=== PATIENT | male | born 2000 | race Caucasian/White ===

== ENCOUNTER 2021-05-05 16:49 | Emergency (ER) | payer MEDICAID ==
--- NOTE | 2021-05-05 18:31 | EDM.PDOC ---
ED HPI GENERAL MEDICAL PROBLEM - General Chief Complaint: Head Injury Stated Complaint: FACE INJURY Time Seen by Provider: 05/05/21 18:15 Source of Information: Reports: Patient History Limitations: Reports: No Limitations - History of Present Illness INITIAL COMMENTS - FREE TEXT/NARRATIVE: 21 year-old male presents to the ED due to a work-related injury that occurred approximately 1630 hrs. today. He essentially had the end of a 3 inch pipe that was under mild pressure his coworker estimates 5 to 10 pounds per square inch. The hoses attached to a single needle operator which is meant metal and it reared up and struck him in the left side of his face. He states for period of time he thought he was going to pass out and he had muffled hearing. Since that time he has no feeling pretty well back to normal. His nose was bleeding for short period of time from the left side. He feels pressure and contusion to the inner mucosa of his left upper facial cheek. Did not spit up any blood. He feels his teeth are intact with no loose teeth or chipped teeth. He has no problem opening and closing his jaw and has no malocclusion. There are no open wounds. There is an abrasion across his left facial cheek likely from the abrasive material of the holes itself. Onset: Today, Sudden Onset Date: 05/05/21 Onset Time: 16:30 Duration: Minutes: Location: Reports: Face (Left hemiface inferior to his left eye) Quality: Reports: Ache, Burning Severity: Mild Improves with: Reports: Rest Worsens with: Reports: Other (Lightly worse with touch of the area.) Context: Reports: Trauma (Struck with a blunt end of a 3 inch holes coupling which is meant metal. The hose was under mild amount of pressure such as 5 to 10 pounds per square inch. Essentially is suffered a direct blow abrasion contusion to the left facial cheek). Denies: Activity, Exercise, Lifting, Sick Contact Associated Symptoms: Denies: Confusion, Chest Pain, Cough, cough w sputum, Diaphoresis, Fever/Chills, Headaches, Loss of Appetite, Malaise, Nausea/Vomiting, Rash, Seizure, Shortness of Breath, Syncope, Weakness, Other Treatments WHIPPER BEATER: Reports: Other (see below) (None.) Left Cheek Pain Score (Numeric/FACES): 3 Social & Family History - Living Situation & Occupation Living situation: Reports: Single Occupation: Employed ED ROS GENERAL - Review of Systems Review Of Systems: See Below Constitutional: Reports: No Symptoms HEENT: Reports: Hearing Loss, Nosebleed (Transient muffled hearing after being struck by the hose but now has returned to normal. Transient bleeding left side of his nares.). Denies: Throat Pain Respiratory: Reports: No Symptoms Cardiovascular: Reports: No Symptoms Endocrine: Reports: No Symptoms GI/Abdominal: Reports: No Symptoms : Reports: No Symptoms Musculoskeletal: Reports: No Symptoms Skin: Reports: No Symptoms Neurological: Reports: No Symptoms Psychiatric: Reports: No Symptoms Hematologic/Lymphatic: Reports: No Symptoms Immunologic: Reports: No Symptoms ED EXAM, HEAD INJURY - Physical Exam Exam: See Below Exam Limited By: No Limitations General Appearance: Alert, WD/WN, No Apparent Distress Head: Atraumatic, Normocephalic, Facial Abrasions (Very minimal left-sided facial abrasions inferior to the zygoma and over the maxillary sinus on the left side.), Sinus Tenderness, Facial Tenderness (Very mild over the left maxillary sinus tenderness along the masseter muscle left), Other ( side of his face temporomandibular joint normal. Mandible normal). No: Facial Lacerations, Facial Swelling Nexus Criteria: No: Posterior, Midline Cervical Tenderness, Evidence of Intoxication, Altered Level of Consciousness, Focal Neurological Deficit Eyes: Bilateral Eye: Normal Inspection (No blepharal pallor or scleral icterus), PERRL Ears: Normal External Exam, Normal Canal Nose: Other (There is significant swelling of the superior medial turbinates on the left side of his nares with no active bleeding. There is no septal hematoma. The septum clinically is intact with no significant nasal tenderness. I could find no blood in the left nasal cavity or the right.) Throat/Mouth: Normal Inspection, Normal Lips, Normal Teeth, Normal Gums, Normal Voice, Other (No lacerations or contusions evident to the inner lip or mucosa adjacent to the molar teeth uppers and lowers.) Neck: Non-Tender, Full Range of Motion, Normal Alignment, Normal Inspection. No: Painful Range of Motion Respiratory: No Respiratory Distress, Lungs Clear, Normal Breath Sounds, No Accessory Muscle Use, Chest Non-Tender Cardiovascular: Normal Peripheral Pulses, Regular Rate, Rhythm, No Edema, No Gallop, No JVD, No Rub Extremities: Normal Inspection, Normal Range of Motion, Non-Tender, No Pedal Edema Neurologic: No Motor/Sensory Deficits, Alert, Normal Mood/Affect, Oriented x 3 - Sam Coma Score Best Eye Response ([place]): (4) Open Spontaneously Best Verbal Response ([place]): (5) Oriented Best Motor Response ([place]): (6) Obeys Commands Sam Total: 15 Course - Vital Signs Last Recorded V/S: Last Vital Signs Temp 36.5 C 05/05/21 18:03 Pulse 83 05/05/21 18:03 Resp 16 05/05/21 18:03 BP 118/79 05/05/21 18:03 Pulse Ox 100 05/05/21 18:03 - Radiology Interpretation Free Text/Narrative:: 21-year-old male presents to the ED for evaluation of a work-related injury. He was struck by the blunt end of a 3 inch holes which has a metal coupling on it. This struck him in the left facial cheek. His coworker feels he was under a mild amount of pressure such as 5 to 10 pounds per square inch. Patient suffered a direct blow to the left facial cheek and a bit of an abrasion. Initially he felt faint. He felt muffled hearing bilaterally which is now returned to normal. Transient left-sided nosebleed. He is aware of left hemifacial tenderness but denies spitting up any blood and clinically does not feel that any of his teeth are chipped and no injury to his tongue. Injury occurred approximately an hour and a half before see being seen in the ED. There was definitely no loss of consciousness or fall. He denies any other injuries. On examination he has an abrasion and contusion to the left facial cheek over the left maxillary sinus. Masseter muscle appears to be intact without pain TMJs intact. Mandible is intact. There is swelling of the mucosa of the left inner naris but there is no septal hematoma and no active bleeding. There is no obvious contusions or hematoma formation to the buccal mucosa adjacent to his upper molars and his lips are intact. He has no pain in his neck and has full unopposed range of motion. Clavicles and shoulders are normal. Patient reassured and his boss is with him. He will be able to return to full work duties tomorrow with no restrictions. Departure - Departure Time of Disposition: 18:26 Disposition: Home, Self-Care 01 Condition: Fair Clinical Impression: Contusion of face Qualifiers: Encounter type: initial encounter Qualified Code(s): S00.83XA - Contusion of other part of head, initial encounter - Discharge Information *PRESCRIPTION DRUG MONITORING PROGRAM REVIEWED*: Not Applicable *COPY OF PRESCRIPTION DRUG MONITORING REPORT IN PATIENT EBONIE: Not Applicable Instructions: Facial or Scalp Contusion, [id number] Referrals: PCP,None [Primary Care Provider] - Forms: ED Department Discharge Additional Instructions: Evaluation in the emergency room today in regards to a work-related injury. You were struck in the left side of your face by a 3 inch hose that was under mild pressure probably 5 pounds per square inch. It appears that this created a glancing type blow with abrasion contusion to the left facial cheek. Associated mild left nosebleed that has stopped on its own and has no obvious injuries on examination. There are no fractures clinically and the left hemiface and no blood behind the eardrum on the left side. Dentition is intact and there is no laceration to the inner mucosa or the lining of your cheek or mouth. This may be more sore tomorrow. You could put ice on the area tonight if you wish for 1/2-hour out of every 3 hours to reduce pain and swelling. May use Motrin 600 mg every 6 hours as needed to relieve pain and inflammation for the next few days. You are cleared to return to work with full active duties with no restrictions. Sepsis Event Note (ED) - Evaluation Sepsis Screening Result: No Definite Risk - Focused Exam Vital Signs: Vital Signs Temp Pulse Resp BP Pulse Ox 05/05/21 18:03 36.5 C 83 16 118/79 100
== END 2021-05-05 18:38 | disposition home or self-care (01) ==
LOC: JD.ED 16:49
DX: S00.83XA Contusion of other part of head, initial encounter (principal); W22.09XA Striking against other stationary object, initial encounter
CPT/HCPCS: 99283